=== PATIENT | male | born 1975 | race Caucasian/White ===

== ENCOUNTER 2023-08-18 14:46 | Outpatient (AMB) | payer OTHER, SELFPAY ==
[2023-08-18 15:02] VITALS: BP 137/68; PULSE 63; BMI 33.3
--- NOTE | 2023-08-18 15:02 | MHC.OFFVIS ---
Vital Signs 08/18/23 15:02 Height 5 ft 11 in Weight 238 lb 15.697 oz BMI 33.3 BP 137/68 Blood Pressure Location Lt brachial Position Sitting Pulse 63 Intake Visit Reasons: Colonoscopy screening Intake Note: News patient in office today for colonoscopy screening. CC: Patient denies having any GI symptoms today. Snack Bar Cashier Required: No Accompanied by: Self / Same As Patient Allergies iodine Allergy (Severe, Verified 08/18/23 15:03) Anaphylaxis HPI HPI Colonoscopy screening: Details: 48 year old? male with past medical history of hypertension, hyperlipidemia, diabetes, obesity is here today for pre colonoscopy screening.? Patient was sent to us by his PCP.? This is his first colonoscopy screening.? Patient denies any gastrointestinal symptoms in the past or at present.? Denies any personal or family history of gastrointestinal disease, colon polyps, or CRC.? Denies history of difficulty with sedation or anesthesia in the past.? Negative for history of sleep apnea.? Denies any history of cardiac, renal, pulmonary, or hepatic disease.?? No history of infectious? diseases like hepatitis A, B, C, HIV or tuberculosis.? Patient is not on any anticoagulation therapy. PFSH Surgical History H/O shoulder surgery History of back surgery Hx of spinal fusion Family History Maternal Grandmother Breast cancer Paternal Grandfather Heart attack Paternal Grandmother Heart disease Social History Alcohol intake: current Alcohol intake frequency: a few times a week Alcohol type: beer Patient Tobacco Use Status: Never used Tobacco Substance Use Type: Marijuana Review of Systems Const Denies weight gain and Denies weight loss ENT Reports no additional complaints, Denies dysphagia and Denies odynophagia Card Reports no additional complaints Resp Reports no additional complaints GI Denies abdominal pain, Denies belching, Denies melena, Denies bloating, Denies change in bowel habits, Denies dysphagia, Denies excessive flatus, Denies dyspepsia, Denies heartburn, Denies diarrhea, Denies loose stools, Denies nausea, Denies odynophagia and Denies vomiting Reports no additional complaints Musc Reports no additional complaints Neuro Reports no additional complaints Psych Reports no additional complaints Endo Reports no additional complaints Physical Exam Vital Signs: Last Vital Signs Pulse 63 08/18/23 15:02 BP 137/68 08/18/23 15:02 BMI result Body Mass Index 33.3 Const General: healthy appearing and no acute distress Nutritional Appearance: obese Orientation/consciousness: patient oriented x3 Resp Effort & Inspection: normal respiratory effort, able to speak in complete sentences, no tracheal deviation and symmetric chest movement Auscultation: clear to auscultation bilaterally Cardio Rate: regular rate GI Inspection: Yes normal to inspection, No distended and Yes obesity Palpation (GI): Soft to palpation, not firm, nontender and No hepatosplenomegaly present Auscultation: normal bowel sounds General: Yes no CVA tenderness Back/Spine/Pelvis Back: no CVA tenderness Skin General skin exam: elasticity normal, turgor normal and dry skin Neuro General: patient oriented x3 Psych Appearance: grossly normal Mental Status: mental status grossly normal Assessment & Plan Assessment & Plan (1) Screen for colon cancer: Code(s): Z12.11 - Encounter for screening for malignant neoplasm of colon Plan Patient denies any GI, cardiac or respiratory symptoms. ?Denies any issues with anesthesia in the past.? Denies any history of sleep apnea.? No history infectious diseases in the past or present.? Not on any anticoagulation therapy.? No family or personal history of colon cancer or polyps.? Patient denies melena, hematochezia, unintentional weight loss or ribbon like stools.? Discussed at length the pre-procedure,? prep, diet & medications as well as what to expect prior, during and after the procedure.?? Stressed the importance of good bowel prep. ?Recommended the use of Vaseline or Calmoseptine OTC & baby wipes with bowel movements to promote comfort.? ?Patient verbalizes understanding and agrees to plan of care.? He was given the opportunity to ask questions and all questions answered.? We will see him after the procedure.? Medications: New bisacodyl (Dulcolax (bisacodyl)) take 4 tabs at noon the day before your colonoscopy 20 mg (4 x 5 mg) PO ONCE 1 day 4 tabs 0RF Z12.11 - Encounter for screening for malignant neoplasm of colon polyethylene glycol 3350 (Miralax) As directed by gastroenterology department at [facility] 238 grams PO ONCE 238 grams 0RF Z12.11 - Encounter for screening for malignant neoplasm of colon Coding Level of Care Code New Pt Level 3 (62339) Diagnoses Screen for colon cancer Z12.11 Time Spent (min) 40 Comment 30 minutes spent with patient and additional 10 minutes spent reviewing his records
== END 2023-08-18 15:47 | disposition home or self-care (01) ==
PROVIDERS: Visit Provider Nurse Practitioner Family
DX: Z12.11 Encounter for screening for malignant neoplasm of colon (principal); Z01.818 Encounter for other preprocedural examination
CPT/HCPCS: 99203

== ENCOUNTER → 2023-08-18 14:46 | Outpatient (BNVA) | payer SELFPAY | PROVIDERS: Visit Provider Nurse Practitioner Family ==

== ENCOUNTER 2024-01-30 08:22 | Day surgery (SDC) | payer OTHER, SELFPAY ==
[2024-01-28 11:05] VITALS: BMI 33.3
[2024-01-30 08:33] VITALS: BMI 33.5
[2024-01-30] MEDS: Lactated Ringers 1,000 ML 100 ML IVCONT (08:43)
--- NOTE | 2024-01-30 08:44 | MHC.SHP ---
Pre-Procedural Eval Section A - 24 Hr Update-Section A only Date of Service: 01/30/24 Section B - Complete if H&P > 30 days Chief Complaint: Encounter for screening for malignant neoplasm of Details of Present Illness: H/O shoulder surgery History of back surgery Hx of spinal fusion Family History Maternal Grandmother Breast cancer Paternal Grandfather Heart attack Paternal Grandmother Heart disease Allergies: Allergies Allergy/AdvReac Type Severity Reaction Status Date / Time iodine Allergy Severe Anaphylaxis Verified 08/18/23 15:03 Review of Systems Review of Systems Comment: Ten point ROS negative Exam Exam Comment: Gen appear: No acute distress HEENT: no icterus Chest: No overt resp distress Abd: soft, nontender, nondistended Psych: Stable affect, answering questions appropriately Neuro: A/Ox3 noted to move all extremities spontaneously Ext: no peripheral edema Plan Diagnosis/Plan: Unchanged I have reviewed the history and physical and performed a pertinent physical examination on my patient. No changes have occurred unless specified. Time Spent With Patient Time: Total time managing care of this patient today ____ minutes.
[2024-01-30 08:54] VITALS: BP 165/96; PULSE 86; RESP 18; TEMP 36.7; O2SAT 96
[2024-01-30 08:55] LABS: Glucose, Whole Blood 268 mg/dL (60-115)
--- NOTE | 2024-01-30 09:25 | HO.ANESPROP2 ---
Documented by User: Litzy Huertas NP 01/29/24 10:30 HPI - Anesthesia Eval Consult details Narrative: 48yo M for Colonoscopy [facility] Past Medical History Medical History Fatty liver Unhealthy alcohol drinking behavior Diabetes Elevated cholesterol HTN (hypertension) Family History Family History Maternal Grandmother Breast cancer Paternal Grandfather Heart attack Paternal Grandmother Heart disease Surgical History Surgical History H/O shoulder surgery History of back surgery Hx of spinal fusion Social History Social History Are you a primary patient care technician instructor to a significant other at home: No Do you presently have visiting nurse or other home services: No Alcohol intake: current Alcohol intake frequency: a few times a week Alcohol type: beer Patient Tobacco Use Status: Never used Tobacco Substance Use Type: Marijuana Substance Use Frequency: Occasionally Have you been hit, kicked, punched, or otherwise hurt by someone within the past year? If so, by whom?: No Are you DNR?: No Advance Directives: No Advance Directives Information Provided: Yes Recently lost weight without trying: No Nutrition Risks: No Nutritional Risk Meds Allergies Allergy/AdvReac Type Severity Reaction Status Date / Time iodine Allergy Severe Anaphylaxis Verified 01/30/24 08:54 Home Medications ?Medication ?Instructions ?Recorded ?Confirmed ?Last Taken ?Type amlodipine 5 mg tablet 5 mg PO DAILY 08/18/23 01/28/24 Unknown History atenolol 100 mg tablet 100 mg PO DAILY 08/18/23 01/28/24 Unknown History lovastatin 10 mg tablet 10 mg PO BEDTIME 08/18/23 01/28/24 Unknown History metformin 500 mg tablet,extended 500 mg PO BID 08/18/23 01/28/24 Unknown History release 24 hr omega-3 acid ethyl esters 1 gram 2 cap PO BID 08/18/23 01/28/24 01/28/24 History capsule Exam Height,Weight and Vital Signs: Height 5 ft 11 in Weight 108.409 kg Assessment and Plan Assessment Anesthesia Assessment: Chart Reviewed Documented by User: Gini Mitchell DO 01/30/24 09:42 PMFSH Past Medical History Medical History Fatty liver Unhealthy alcohol drinking behavior Diabetes Elevated cholesterol HTN (hypertension) Family History Family History Maternal Grandmother Breast cancer Paternal Grandfather Heart attack Paternal Grandmother Heart disease Family history of problems with anesthesia: No Surgical History Surgical History H/O shoulder surgery History of back surgery Hx of spinal fusion History of Problems with Anesthesia: No Social History Social History Are you a primary patient care technician instructor to a significant other at home: No Do you presently have visiting nurse or other home services: No Alcohol intake: current Alcohol intake frequency: a few times a week Alcohol type: beer Patient Tobacco Use Status: Never used Tobacco Substance Use Type: Marijuana Substance Use Frequency: Occasionally Have you been hit, kicked, punched, or otherwise hurt by someone within the past year? If so, by whom?: No Are you DNR?: No Advance Directives: No Advance Directives Information Provided: Yes Recently lost weight without trying: No Nutrition Risks: No Nutritional Risk Meds Allergies Allergy/AdvReac Type Severity Reaction Status Date / Time iodine Allergy Severe Anaphylaxis Verified 01/30/24 08:54 Home Medications ?Medication ?Instructions ?Recorded ?Confirmed ?Last Taken ?Type amlodipine 5 mg tablet 5 mg PO DAILY 08/18/23 01/28/24 Unknown History atenolol 100 mg tablet 100 mg PO DAILY 08/18/23 01/28/24 Unknown History lovastatin 10 mg tablet 10 mg PO BEDTIME 08/18/23 01/28/24 Unknown History metformin 500 mg tablet,extended 500 mg PO BID 08/18/23 01/28/24 Unknown History release 24 hr omega-3 acid ethyl esters 1 gram 2 cap PO BID 08/18/23 01/28/24 01/28/24 History capsule Exam Exam Date and Time: 01/30/24924 Height,Weight and Vital Signs: Height 5 ft 11 in Weight 108.409 kg Vital Signs Temperature 98.1 F 01/30/24 08:54 Pulse Rate 86 01/30/24 08:54 Respiratory Rate 18 01/30/24 08:54 Blood Pressure 165/96 H 01/30/24 08:54 Pulse Oximetry 96 01/30/24 08:54 Oxygen Delivery Method Room Air 01/30/24 08:54 Temperature 98.1 F 01/30/24 08:54 Pulse Rate 86 01/30/24 08:54 Respiratory Rate 18 01/30/24 08:54 Blood Pressure 165/96 H 01/30/24 08:54 Pulse Oximetry 96 01/30/24 08:54 Oxygen Delivery Method Room Air 01/30/24 08:54 Airway Mallampati Class: II TM Dist: >3cm Neck ROM: Full Loose/Missing/Broken Teeth: No (patient denies any loose or broken teeth) Heart: S1S2 Lungs: CTAB Assessment and Plan Assessment Anesthesia Assessment: Anesthesia Plan Discussed and Chart Reviewed Final Anesthetic Review Family History of Problems with Anesthesia: No History of Problems with Anesthesia: No NPO: Yes ASA Class: II Final Preanesthetic Review: No Changes in Pt Med Stat, Meds/Allgs Chart Reviewed, Consent Obtained/Reviewed and Anes Risks/Benef Reviewed Patient Risk: Low Procedure Risk: Low Anesthetic Plan Anesthetic Plan: MAC: and Agree w/ Assess. and Plan Disposition: Standard PACU
--- NOTE | 2024-01-30 10:06 | P.OPN-COLO_ITS ---
Colonoscopy Operative Note Operative Note Date of Service: 01/30/24 Narrative: Procedure: Colonoscopy Indication: Screening Endoscopist: Josette Raymond MD Anesthesia Provider: Dr Gini Mitchell Anesthesia type: MAC Instrument: Olympus [id number]-[id number] Consent: Indication, risks vs benefits, and alternatives were discussed with the patient who gave written informed consent to proceed. EKG, pulse, pulse oximetry and blood pressure were monitored throughout the procedure. Please see anesthesia flowsheet. Procedure: The patient was brought to the procedure room and placed in the left lateral decubitus position. IV medications were administered by the anesthesia provider in attendance. A digital rectal exam was performed which was abnormal due to finding of hemorrhoids. A distal attachment cap was affixed to the tip of the colonoscope which was then inserted through the anus and advanced through the colon to the cecum at 75 cm,and terminal ileum. Appendiceal orifice and ileocecal valve were identified. Mucosa was carefully examined under high definition white light as the instrument was slowly withdrawn in a retrograde panoramic fashion. Retroflexion was performed in rectum. The procedure was not difficult. There were no immediate obvious complications. The quality of the prep was BBPS: 2+2+2 = adequate Withdrawal time 22 minutes. Limitations: No limitations. Findings: Mucosa: Normal to cecum and terminal ileum. Protruding lesions: * 1 sessile polyp of size 4 mm in cecum. Cold snare polypectomy was performed. The polyp was completely removed and retrieved. * 1 sessile polyp of size 2 mm in ascending colon. Cold snare polypectomy was performed. The polyp was completely removed and retrieved. * 1 pedunculated polyp of size 5 mm in ascending colon. Hot snare polypectomy was performed. The polyp was completely removed and retrieved. * 3 sessile polyp of size 2-6 mm in transverse colon. Cold snare polypectomy was performed. The polyp was completely removed and retrieved. * 1 semi-pedunculated polyp of size 8 mm in transverse colon. Hot snare polypectomy was performed. The polyp was completely removed and retrieved. * 1 semi-pedunculated polyp of size 14 mm in descending colon. Hot snare polypectomy was performed. The polyp was completely removed and retrieved. * 1 pedunculated polyp of size 20 mm in sigmoid colon. Hot snare polypectomy was performed. The polyp was completely removed and retrieved. * Large internal hemorrhoids with stigmata of recent bleeding. Impression: 1. Normal colon mucosa 2. Total of 9 polyps removed 3. External and internal hemorrhoids Recommendations: - Follow path results. - Repeat colonoscopy in 1 year - Fiber supplementation - Anusol supp
[2024-01-30 10:07] VITALS: BP 126/78; PULSE 96; RESP 16; TEMP 36.1; O2SAT 93
[2024-01-30 10:22] VITALS: BP 134/84; PULSE 88; RESP 16; TEMP 36.1; O2SAT 95
== END 2024-01-30 10:48 | disposition home or self-care (01) ==
PROVIDERS: PCP Internal Medicine; Visit Provider Internal Medicine
PROC: 0DJD8ZZ Inspection of Lower Intestinal Tract, Via Natural or Artificial Opening Endoscopic (ICD-10-PCS; CPT 45378; principal; 2024-01-30 10:10)
DX: Z12.11 Encounter for screening for malignant neoplasm of colon (principal); D12.0 Benign neoplasm of cecum; D12.2 Benign neoplasm of ascending colon; D12.3 Benign neoplasm of transverse colon; D12.4 Benign neoplasm of descending colon; D12.5 Benign neoplasm of sigmoid colon; K64.8 Other hemorrhoids; K64.4 Residual hemorrhoidal skin tags; E11.9 Type 2 diabetes mellitus without complications; I10 Essential (primary) hypertension; E78.5 Hyperlipidemia, unspecified; K76.0 Fatty (change of) liver, not elsewhere classified; F12.90 Cannabis use, unspecified, uncomplicated
CPT/HCPCS: 45385; 82947; 88305; J2003; J2704

== ENCOUNTER → 2024-01-30 08:22 | Outpatient (BNV) | payer OTHER, SELFPAY | PROVIDERS: PCP Internal Medicine; Visit Provider Internal Medicine | DX: Z12.11 Encounter for screening for malignant neoplasm of colon (principal); D12.0 Benign neoplasm of cecum; D12.2 Benign neoplasm of ascending colon; K64.8 Other hemorrhoids | CPT/HCPCS: 45385 ==

== ENCOUNTER 2025-02-01 06:19 | Day surgery (SDC) | payer OTHER, SELFPAY ==
[2025-01-27 11:03] VITALS: BMI 32.1
--- NOTE | 2025-01-28 08:56 | HO.ANESPROP2 ---
Documented by User: Litzy Huertas NP 01/28/25 08:57 HPI - Anesthesia Eval Consult details Narrative: 49yo M for Colonoscopy [facility] Past Medical History Medical History (Updated 02/01/25 @ 06:47 by Nara Frank RN) Ribs, multiple fractures Fatty liver Unhealthy alcohol drinking behavior Diabetes Elevated cholesterol HTN (hypertension) Family History Family History Maternal Grandmother Breast cancer Paternal Grandfather Heart attack Paternal Grandmother Heart disease Family history of problems with anesthesia: No Surgical History Surgical History (Updated 01/27/25 @ 07:54 by Elizabeth Kaplan RN) Hx of colonoscopy (01/2024) H/O shoulder surgery History of back surgery Hx of spinal fusion History of Problems with Anesthesia: No Social History Social History Are you a primary healthcare analyst to a significant other at home: No Do you presently have visiting nurse or other home services: No Alcohol intake: current Alcohol intake frequency: a few times a week Alcohol type: beer Patient Tobacco Use Status: Never used Tobacco Use of substances other than those prescribed or required for medical reasons: Yes Substance Use Type: Marijuana Are you DNR?: No Advance Directives: No Advance Directives Information Provided: Yes Advance Directives on File: No Poor oral hygiene: No Meds Allergies Allergy/AdvReac Type Severity Reaction Status Date / Time iodine Allergy Severe Anaphylaxis Verified 01/30/24 08:54 Home Medications ?Medication ?Instructions ?Recorded ?Confirmed ?Last Taken ?Type atenolol 100 mg tablet 100 mg PO DAILY 08/18/23 01/27/25 02/01/25 History lovastatin 10 mg tablet 10 mg PO BEDTIME 08/18/23 01/27/25 01/31/25 History metformin 500 mg tablet,extended 1,000 mg PO DAILY 08/18/23 01/27/25 01/31/25 History release 24 hr omega-3 acid ethyl esters 1 gram 2 cap PO BID 08/18/23 01/27/25 01/03/25 History capsule amlodipine 10 mg tablet 10 mg PO DAILY 01/27/25 01/27/25 02/01/25 History empagliflozin 25 mg tablet 25 mg PO DAILY 01/27/25 01/27/25 01/29/25 History (Jardiance) Exam Height,Weight and Vital Signs: Height 5 ft 11 in Weight 104.326 kg Assessment and Plan Assessment Anesthesia Assessment: Chart Reviewed Final Anesthetic Review Family History of Problems with Anesthesia: No History of Problems with Anesthesia: No Documented by User: Gucci Sanchez MD 02/01/25 07:18 PMFSH Active Problems Active Problems: daily etoh, htn, pre-dm Past Medical History Medical History (Updated 02/01/25 @ 06:47 by Nara Frank RN) Ribs, multiple fractures Fatty liver Unhealthy alcohol drinking behavior Diabetes Elevated cholesterol HTN (hypertension) Functional capacity: independent ambulation Family History Family History Maternal Grandmother Breast cancer Paternal Grandfather Heart attack Paternal Grandmother Heart disease Surgical History Surgical History (Updated 01/27/25 @ 07:54 by Elizabeth Kaplan RN) Hx of colonoscopy (01/2024) H/O shoulder surgery History of back surgery Hx of spinal fusion Social History Social History Are you a primary healthcare analyst to a significant other at home: No Do you presently have visiting nurse or other home services: No Alcohol intake: current Alcohol intake frequency: a few times a week Alcohol type: beer Patient Tobacco Use Status: Never used Tobacco Use of substances other than those prescribed or required for medical reasons: Yes Substance Use Type: Marijuana Are you DNR?: No Advance Directives: No Advance Directives Information Provided: Yes Advance Directives on File: No Poor oral hygiene: No Meds Allergies Allergy/AdvReac Type Severity Reaction Status Date / Time iodine Allergy Severe Anaphylaxis Verified 01/30/24 08:54 Home Medications ?Medication ?Instructions ?Recorded ?Confirmed ?Last Taken ?Type atenolol 100 mg tablet 100 mg PO DAILY 08/18/23 01/27/2525 History lovastatin 10 mg tablet 10 mg PO BEDTIME 08/18/23 01/27/25 01/31/25 History metformin 500 mg tablet,extended 1,000 mg PO DAILY 08/18/23 01/27/25 01/31/25 History release 24 hr omega-3 acid ethyl esters 1 gram 2 cap PO BID 08/18/23 01/27/25 01/03/25 History capsule amlodipine 10 mg tablet 10 mg PO DAILY 01/27/25 01/27/25 02/01/25 History empagliflozin 25 mg tablet 25 mg PO DAILY 01/27/25 01/27/25 01/29/25 History (Jardiance) Exam Exam Date and Time: 02/01/25 Airway Mallampati Class: I TM Dist: >3cm Neck ROM: Full Heart: rrr Lungs: ctab vesicular Assessment and Plan Assessment Anesthesia Assessment: Anesthesia Plan Discussed and Smoking Cess. Discussed (etoh cessation discussed) Final Anesthetic Review NPO: Yes ASA Class: II Final Preanesthetic Review: No Changes in Pt Med Stat, Meds/Allgs Chart Reviewed, Consent Obtained/Reviewed and Anes Risks/Benef Reviewed Patient Risk: Low Procedure Risk: Low Anesthetic Plan Anesthetic Plan: MAC: Disposition: Standard PACU
[2025-02-01 06:30] VITALS: BP 138/87; PULSE 74; RESP 17; TEMP 36.4; O2SAT 97
[2025-02-01 06:43] LABS: Glucose, Whole Blood 214 mg/dL (60-115)
[2025-02-01] MEDS: Lactated Ringers 1,000 ML 100 ML IVCONT (06:55)
--- NOTE | 2025-02-01 07:47 | P.HPSUR_ITS ---
Pre-Procedural Eval Section A - 24 Hr Update-Section A only Date of Service: 02/01/25 Section B - Complete if H&P > 30 days Chief Complaint: Hx of polyps Details of Present Illness: H/O shoulder surgery History of back surgery Hx of spinal fusion Family History Maternal Grandmother Breast cancer Paternal Grandfather Heart attack Paternal Grandmother Heart disease Present Medications: see Short Stay Collaborative assessment Allergies: Allergies Allergy/AdvReac Type Severity Reaction Status Date / Time iodine Allergy Severe Anaphylaxis Verified 01/30/24 08:54 Review of Systems Review of Systems Comment: Ten point ROS negative Exam Exam Comment: Gen appear: No acute distress HEENT: no icterus Chest: No overt resp distress Abd: soft, nontender, nondistended Psych: Stable affect, answering questions appropriately Neuro: A/Ox3 noted to move all extremities spontaneously Ext: no peripheral edema Plan Diagnosis/Plan: Unchanged I have reviewed the history and physical and performed a pertinent physical examination on my patient. No changes have occurred unless specified. Time Spent With Patient Time: Total time managing care of this patient today ____ minutes.
--- NOTE | 2025-02-01 08:28 | P.OPN-COLO_ITS ---
Colonoscopy Operative Note Operative Note Date of Service: 02/01/25 Narrative: Procedure: Colonoscopy Indication: Personal history of polyps Endoscopist: Josette Raymond MD Anesthesia Provider: Dr Gucci Sanchez Anesthesia type: MAC Instrument: Olympus [id number]-[id number] Consent: Indication, risks vs benefits, and alternatives were discussed with the patient who gave written informed consent to proceed. EKG, pulse, pulse oximetry and blood pressure were monitored throughout the procedure. Please see anesthesia flowsheet. Procedure: The patient was brought to the procedure room and placed in the left lateral decubitus position. IV medications were administered by the anesthesia provider in attendance. A digital rectal exam was performed which was abnormal due to finding of hemorrhoids. A distal attachment cap was affixed to the tip of the colonoscope which was then inserted through the anus and advanced through the colon to the cecum at 75 cm,and terminal ileum. Appendiceal orifice and ileocecal valve were identified. Mucosa was carefully examined under high definition white light as the instrument was slowly withdrawn in a retrograde panoramic fashion. Retroflexion was performed in rectum. The procedure was not difficult. There were no immediate obvious complications. The quality of the prep was BBPS: 2+1+1 = inadequate Withdrawal time 21 minutes. Limitations: Poor prep. Findings: Mucosa: Normal to cecum and terminal ileum to the extent visualized. Protruding lesions: * 1 semi-pedunculated polyp of size 8 mm in cecum. Hot snare polypectomy was performed. The polyp was completely removed and retrieved. * 1 sessile polyp of size 7 mm in ascending colon. Cold snare polypectomy was performed. The polyp was completely removed and retrieved. * 2 pedunculated polyp of size 8-12 mm in transverse colon. Hot snare polypectomy was performed. The polyps were completely removed and retrieved. * Large internal hemorrhoids without stigmata of recent bleeding. Excavated lesions: * Moderate diverticulosis of left sided colon. Impression: 1. Poor prep 2. Total of 4 polyps removed 3. Diverticulosis 4. External and internal hemorrhoids Recommendations: - Follow path results. - Repeat colonoscopy within 12 months due to prep quality.
[2025-02-01 08:31] VITALS: BP 106/64; PULSE 71; RESP 10; TEMP 36.1; O2SAT 93
[2025-02-01 08:45] VITALS: BP 120/83; PULSE 66; RESP 16; O2SAT 93
[2025-02-01 08:59] VITALS: BP 120/83; PULSE 71; RESP 16; TEMP 36.1; O2SAT 96
== END 2025-02-01 09:22 | disposition home or self-care (01) ==
PROVIDERS: PCP Internal Medicine; Visit Provider Internal Medicine
PROC: 0DJD8ZZ Inspection of Lower Intestinal Tract, Via Natural or Artificial Opening Endoscopic (ICD-10-PCS; CPT 45378; principal; 2025-02-01 07:30)
DX: Z12.11 Encounter for screening for malignant neoplasm of colon (principal); K64.4 Residual hemorrhoidal skin tags; K64.8 Other hemorrhoids; K57.30 Diverticulosis of large intestine without perforation or abscess without bleeding; D12.0 Benign neoplasm of cecum; D12.3 Benign neoplasm of transverse colon; K63.5 Polyp of colon
CPT/HCPCS: 45385; 82947; 88305; J2003; J2250; J2405; J2704; J3010

== ENCOUNTER → 2025-02-01 06:19 | Outpatient (BNV) | payer OTHER, SELFPAY | PROVIDERS: PCP Internal Medicine; Visit Provider Internal Medicine | DX: Z12.11 Encounter for screening for malignant neoplasm of colon (principal); D12.0 Benign neoplasm of cecum; D12.2 Benign neoplasm of ascending colon; D12.3 Benign neoplasm of transverse colon; Z91.199 Patient's noncompliance with other medical treatment and regimen due to unspecified reason; K57.90 Diverticulosis of intestine, part unspecified, without perforation or abscess without bleeding; K64.8 Other hemorrhoids | CPT/HCPCS: 45385 ==